=== PATIENT | female | born 1965 | race Caucasian/White ===

== ENCOUNTER 2017-09-06 16:00 | Inpatient (IN) | payer OTHER ==
[~2017-09-06] VITALS: Ht 167.6 cm; Wt 61.8 kg
--- NOTE | ~2017-09-06 | CON ---
[place], [place] REPORT OF CONSULTATION NAME: LAURY SCOTT UNIT #: [id number] ROOM: 522 DOCTOR: MELISSA GREER MD BIRTHDATE: [birth year] DOS: 09/07/2017 HISTORY OF PRESENT ILLNESS: This is a 51-year-old patient who presented with chief complaint of lower abdominal pain for 2 days. The patient was admitted to the Emergency Room. A CT scan of the abdomen was obtained. The patient was suspected to have a mass in right colon. I have been asked for assessment of the patient in this regard. PAST MEDICAL HISTORY: Associated hypothyroidism. PAST SURGICAL HISTORY: Thyroidectomy and appendectomy. ALLERGIES: No known medication. SOCIAL HISTORY: Nonsmoker and social alcohol consumer. FAMILY HISTORY: Noncontributory. REVIEW OF SYSTEMS: HEENT: Denies double vision, blurred vision. RESPIRATORY: Denies acute shortness of breath. CARDIOVASCULAR: Denies acute chest pain. DIGESTIVE SYSTEM: As identified above. No changes in bowel habit. No hematemesis, no hematochezia. PHYSICAL EXAMINATION: VITAL SIGNS: Stable. HEENT: Within normal limits. NECK: Supple, no thyromegaly, no cervical lymphadenopathy. CHEST: Symmetric anatomy, equal expansion. No wheeze. No rhonchi. HEART: Normal sinus rhythm, no gallop, no murmur. ABDOMEN: Soft. No hepato-organomegaly. Bowel sounds within normal limits. EXTREMITIES: No cyanosis, no pedal edema. NEUROLOGIC: Alert, oriented to time, place and person. IMPRESSION: Abnormal CT scan report mass seen at the level of the cecum, malignancy has been of concern and the colonoscopy was recommended; therefore, we are consulted and answer was needed today. Labs reviewed and records reviewed. Her hCG was negative. H and H were stable. Her urine cultures showed no growth. IMPRESSION AND PLAN: Ruling out mass in cecum, hypothyroidism. Labs reviewed. Medications reviewed, records reviewed. Plan for colonoscopy today. [place], [place] REPORT OF CONSULTATION NAME: LAURY SCOTT UNIT #: [id number] ROOM: 522 DOCTOR: MELISSA GREER MD BIRTHDATE: [birth year] MELISSA GREER MD CM:CONSTR:REPORT OF CONSULTATION 00 09/14/170 interface
--- NOTE | ~2017-09-06 | O ---
[place], [place] OPERATIVE NOTE NAME: LAURY SCOTT UNIT #: [id number] ROOM: 522 DOCTOR: MELISSA GREER MD BIRTHDATE: [birth year] DOS: 09/07/2017 INDICATIONS: This is a 51-year-old patient who presented with chief complaint of abdominal pain, had a CT scan of the abdomen and was suspected to have malignancy in the cecum. PROCEDURE: Today's procedure part of investigation is colonoscopy. PREMEDICATION: Versed and Diprivan. SCOPE: Olympus forward viewing colonoscope 10L video. DESCRIPTION OF PROCEDURE: After putting the patient in the left lateral position and after application of lubricant to the scope, the scope was introduced. Thereafter, under direct visualization, I advanced through the length of colon with some difficulty. Difficulty being extreme tortuosity of the colon. Meticulous care had to be given to maneuver throughout all this tortuosity. Finally base of the cecum explored, appendiceal orifice identified, ileocecal valve was photographed. The scope was gradually withdrawn. There was no colonic mass in the cecum. Air was suctioned out. The patient was extubated, tolerated procedure well. IMPRESSION: Tortuous colon, no cecal mass. PLAN AND DISCUSSION: Regular diet. ACTIVITY: Ad diandra. Thank you very much indeed. Workup for pelvic pain continues, perhaps UTI has to be ruled out. MELISSA GREER MD CM:OPRECORD:OPERATIVE NOTE [id number] MELISSA GREER MD 09/14/17 1711 interface
[2017-09-06 16:00] VITALS: BP 134/82
[~2017-09-06 16:00] MED LIST: ALLEGRA180 MG PO; MEDROL DOSEPAK4 MG PO; PROAIR HFA0.09 MG/AC IH
[2017-09-06 16:23] LABS: BILIRUBIN NEGATIVE (NEGATIVE); BLOOD NEGATIVE (NEGATIVE); CLARITY CLEAR (CLEAR); COLOR YELLOW (YELLOW); GLUCOSE NEGATIVE (NEGATIVE); KETONE NEGATIVE (NEGATIVE); LEUKO ESTERASE 1+ (NEGATIVE); NITRITE NEGATIVE (NEGATIVE); SPECIFIC GRAVITY 1.015 (1.005-1.030); UROBILINOGEN 0.2 E.U./dl (0.2-1.0)
[2017-09-06 16:24] LABS: BASO % 0.6 % (0.0-1.0); EOS # 0.1 10*3/uL (0.0-0.4); EOS % 1.3 % (1.0-4.0); HEMATOCRIT 45.8 % (37.0-47.0); HEMOGLOBIN 14.6 g/dl (12.0-16.0); LYMPH # 1.9 10*3/uL (1.3-4.4); LYMPH % 30.5 % (27.0-41.0); MEAN CELL VOLUME 94.6 fl (81.0-99.0); MEAN CORPUSCULAR HGB 30.2 pg (27.0-31.0); MEAN CORPUSCULAR HGB CONC 31.9 g/dl (33.0-37.0); MEAN PLATELET VOLUME 11.1 fl (9.6-12.3); MONO # 0.5 10*3/uL (0.1-1.0); NEUT # 3.7 10*3/uL (2.3-7.9); NEUT % 59.3 % (47.0-73.0); PLATELET COUNT AUTOMATED 210 10*3/uL (130-400); RED BLOOD COUNT 4.84 10*6/uL (4.10-5.10); RED CELL DISTRI WIDTH 11.9 % (0-14.5); WHITE BLOOD COUNT 6.2 10*3/uL (4.8-10.8)
[2017-09-06 16:32] LABS: BACTERIA TRACE; RBC 0-2 rbc/hpf (0-2)
[2017-09-06 16:43] LABS: ALBUMIN 4.2 gm/dl (3.1-4.5); ALKALINE PHOSPHATASE 87 U/L (45-117); BUN 16 mg/dl (7-24); CHLORIDE 104 mmol/L (98-107); CREATININE 0.95 mg/dL (0.55-1.02); SGOT/AST 17 IU/L (3-35); SGPT/ALT 18 U/L (12-78); SODIUM 140 mmol/L (136-145); TOTAL PROTEIN 7.8 gm/dL (6.4-8.2)
[2017-09-06 18:01] VITALS: BP 123/79
--- NOTE | 2017-09-06 19:49 | NUR ---
PATIENT RESTING IN BED WITH FAMILY AT BEDSIDE STATES NO CHANGE IN ABDOMINAL PAIN, PT A&O X3, DENIES NAUSEA OR VOMITING, CONSTANT SHARP PAIN THAT VARIES IN INTENCITY
[2017-09-06 19:56] VITALS: BP 155/92
[2017-09-06 21:00] VITALS: BP 143/88
--- NOTE | 2017-09-06 21:00 | NUR ---
Time: 2099 A 51 year old FEMALE admitted to 5E under services of FRANKY MERRITT DO. Pt. arrived via wheel chair from ER. Chief complaint: ABDOMINAL PAIN, ABDOMINAL MASS. JACKELINE HERNANDEZ
--- NOTE | 2017-09-06 21:24 | NUR ---
SPOKE TO AT THIS TIME REGARDING CONSULT. DISCUSSED RESULTS OF CT OF ABD/PELVIS INCLUDING CECAL MASS MEASURING 2.7 X 1.8 X 4.8 CM. ALSO DISCUSSED LABS AND HOME MEDICATIONS. INSTRUCTED TO CALL WITH RESULTS OF URINE CULTURE WHEN IT COMES BACK. AWARE THAT PRELIMINARY CULTURE RESULTS GENERALLY TAKE 48 HOURS TO RETURN.
--- NOTE | 2017-09-06 22:03 | NUR ---
PT MEDICATED WITH PO NORCO PER PRN ORDER FOR C/O LOWER ABDOMINAL PAIN 05/11. PATIENT STATES FEELING IS A CONSTANT DULL ACHE/UNCOMFORTABLE FEELING WITH INTERMITTENT SHARP PAINS. WILL MONITOR EFFECTIVENESS OF MEDICATIONS. IV DILAUDID OFFERED PER PRN ORDER, BUT PATIENT STATES SHE DOES NOT WANT TO TAKE SOMETHING SO STRONG AT THIS TIME. CALL LIGHT LEFT IN REACH.
[2017-09-06] MEDS ORDERED: SYNTHROID,LEV112 MCG PO (22:27)
[2017-09-06] MEDS ORDERED: ONCE DAILY1 EACH PO (22:28)
[2017-09-06] MEDS ORDERED: SEPTDS PO (22:28)
--- NOTE | 2017-09-06 22:30 | NUR ---
PATIENT MED REC UP TO DATE PER PATIENT RECALL.
--- NOTE | 2017-09-06 22:58 | NUR ---
PATIENT STATES EARLIER MEDICATION WAS EFFECTIVE. WILL CONTINUE TO MONITOR. CALL LIGHT LEFT IN REACH.
[2017-09-07] VITALS (9 sets, daily range): BP systolic 90–130; BP diastolic 60–88
--- NOTE | 2017-09-07 05:47 | NUR ---
SPOKE TO AT THIS TIME. WANTS PATIENT TO HAVE 25 MG DULCOLAX PO NOW, FOLLOWED BY 255 MG MIRALAX PREP IN 2L OF GATORADE. ALSO INSTRUCTED TO HOLD ALL BLOOD THINNERS, KEEP PT NPO AFTER MIRALAX PREP, AND CALL BY 11 AM REGARDING RESULTS OF COLO PREP. POSSIBLE COLO DEPENDING ON RESPONSE TO PREP.
[2017-09-07 06:08] LABS: BUN 15 mg/dl (7-24); CHLORIDE 103 mmol/L (98-107); CHOLESTEROL 175 mg/dL (<200); CREATININE 0.95 mg/dL (0.55-1.02); HDL CHOLESTEROL 58 mg/dl (40-60); LDL CHOLESTEROL 105 mg/dL (9-159); SODIUM 140 mmol/L (136-145); TRIGLYCERIDES 58 mg/dl (<150); VLDL CHOLESTEROL 12 mg/dL (6-40)
[2017-09-07 06:15] LABS: THYROID STIM HORMONE (HS) 0.061 uIU/ml (0.358-4.75)
[2017-09-07 06:17] LABS: BASO % 0.7 % (0.0-1.0); EOS # 0.1 10*3/uL (0.0-0.4); EOS % 2.4 % (1.0-4.0); HEMATOCRIT 41.6 % (37.0-47.0); HEMOGLOBIN 13.3 g/dl (12.0-16.0); LYMPH # 1.6 10*3/uL (1.3-4.4); LYMPH % 38.3 % (27.0-41.0); MEAN CELL VOLUME 93.7 fl (81.0-99.0); MEAN PLATELET VOLUME 11.7 fl (9.6-12.3); MONO # 0.4 10*3/uL (0.1-1.0); MONO % 9.7 % (3.0-9.0); NEUT % 48.7 % (47.0-73.0); PLATELET COUNT AUTOMATED 173 10*3/uL (130-400); RED BLOOD COUNT 4.44 10*6/uL (4.10-5.10); RED CELL DISTRI WIDTH 11.9 % (0-14.5); WHITE BLOOD COUNT 4.1 10*3/uL (4.8-10.8)
[2017-09-07 06:45] LABS: ACT PARTIAL THROMBO TIME 25.3 SECONDS (20.8-31.5)
--- NOTE | 2017-09-07 08:21 | NUR ---
Patient requested information regarding [facility]PO[facility] and living will. Packet provided.
--- NOTE | 2017-09-07 09:00 | NUR ---
[employer] Blind [employer]er And Repairer in to talk to patient. Patient states lives at home with family. There are no steps in the home. Physician: patricio lynn Pharmacy: [facility] Home health services: none Patient's level of ADLs: INDEPENDENT Patient has working utilities: all working DME: none Follow-up physician's appointment after d/c: will be made by hospitalist nurse director upon discharge Does patient want to access PORTAL?: no Discharge plan discussed with patient patient lives at home, is independent in adls and ambulation, patient will be going home when able and denies any home needs. BONG DAMON
--- NOTE | 2017-09-07 10:46 | NUR ---
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
--- NOTE | 2017-09-07 13:46 | NUR ---
MEDICATED IV DILAUDID FOR C/O ABDOMINAL PAIN. RATES PAIN 8/10. PT IMMEDIATELY STATES HER HEAD FEELS FUNNY AND LIGHTHEADINESS. BP 120/50. WILL CONTINUE TO MONITOR.
--- NOTE | 2017-09-07 13:55 | NUR ---
DR FRAIRE NOTIFIED THAT PT DOES NOT WANT DILAUDID FOR PAIN, WOULD LIKE SOMETHING ELSE.
--- NOTE | 2017-09-07 14:30 | NUR ---
RESTING QUIETLY, DILAUDID EFFECTIVE FOR PAIN BUT PT STATES SHE DID NOT LIKE THE WAY IT MADE HERE FEEL. DR FRAIRE HAS PUT ORDER IN FOR TORODAL.
--- NOTE | 2017-09-07 16:02 | NUR ---
MEDICATED IV ZOFRAN FOR C/O NAUSEA.
--- NOTE | 2017-09-07 16:04 | NUR ---
IV FLUIDS D5 1/2 WITH KCL AT 80 HOUR STARTED ORDERED.
--- NOTE | 2017-09-07 16:30 | NUR ---
TO OR VIA BED.
--- NOTE | 2017-09-07 18:05 | NUR ---
BACK FROM OR. ONLY C/O IS THAT SHE IS HUNGRY.
--- NOTE | 2017-09-07 18:19 | NUR ---
MEDICATED PO NORCO FOR C/O PAIN. RATES PAIN 5/10
[2017-09-08] VITALS: BP 100/56
[2017-09-08 06:55] LABS: BASO % 0.7 % (0.0-1.0); EOS # 0.1 10*3/uL (0.0-0.4); EOS % 2.7 % (1.0-4.0); HEMATOCRIT 41.5 % (37.0-47.0); HEMOGLOBIN 13.5 g/dl (12.0-16.0); LYMPH # 1.3 10*3/uL (1.3-4.4); LYMPH % 31.5 % (27.0-41.0); MEAN CELL VOLUME 94.3 fl (81.0-99.0); MEAN CORPUSCULAR HGB 30.7 pg (27.0-31.0); MEAN CORPUSCULAR HGB CONC 32.5 g/dl (33.0-37.0); MEAN PLATELET VOLUME 11.4 fl (9.6-12.3); MONO # 0.3 10*3/uL (0.1-1.0); NEUT # 2.3 10*3/uL (2.3-7.9); NEUT % 56.9 % (47.0-73.0); PLATELET COUNT AUTOMATED 174 10*3/uL (130-400); RED CELL DISTRI WIDTH 11.7 % (0-14.5); WHITE BLOOD COUNT 4.1 10*3/uL (4.8-10.8)
[2017-09-08 07:28] LABS: CHLORIDE 105 mmol/L (98-107); POTASSIUM 4.7 mmol/L (3.5-5.1); SODIUM 139 mmol/L (136-145)
[2017-09-08 07:37] LABS: ALBUMIN 3.6 gm/dl (3.1-4.5); ALKALINE PHOSPHATASE 69 U/L (45-117); BUN 15 mg/dl (7-24); CREATININE 0.82 mg/dL (0.55-1.02); SGOT/AST 14 IU/L (3-35); SGPT/ALT 16 U/L (12-78); TOTAL PROTEIN 6.6 gm/dL (6.4-8.2)
[2017-09-08 08:00] VITALS: BP 120/72
--- NOTE | 2017-09-08 08:30 | NUR ---
Patient resting quietly with no c/o discomfort. Respirations easy and regular. Vital signs stable. No overt distress. ANGEL BARRERA R
--- NOTE | 2017-09-08 09:00 | NUR ---
case management visits with patient, patient denies any home needs
--- NOTE | 2017-09-08 11:30 | NUR ---
DR GREER CALLED AND NOTIFIED OF URINE CULTURE RESULT. UPDATED THAT PT TOLERATED DIET WITHOUT PROBLEM AND ORDERING OF PELVIC US FOR TODAY. DR GREER WANTS CALLED WITH RESULT.
[2017-09-08 12:00] VITALS: BP 125/86
--- NOTE | 2017-09-08 13:19 | NUR ---
DR FRAIRE NOTIFIED OF PATIENTS IV BEING PULLED OUT AND PT REQUEST AT THIS TIME NOT TO HAVE ANOTHER IV PLACED. DR FRAIRE STATES THAT IS OK.
[2017-09-08 16:00] VITALS: BP 125/74
[2017-09-08] MEDS ORDERED: B12,B-12,B 12500 MC1 PO (17:06)
--- NOTE | 2017-09-08 17:06 | NUR ---
DR FRAIRE CALLED WITH PELVIC US RESULTS.
--- NOTE | 2017-09-08 17:09 | NUR ---
DR GREER CALLED WITH PELVIC US RESULTS. NO NEW ORDERS. OK TO DC FROM HIM. FOLLOW UP IN OFFICE OUT PATIENT.
--- NOTE | 2017-09-08 17:10 | NUR ---
DR FRAIRE CALLED AND NOTIFIED OF DR GREER'S CALL.
--- NOTE | 2017-09-08 17:50 | NUR ---
Discharge instructions reviewed with patient/family. Patient receptive and verbalizes understanding. Follow-up care arranged. Written instructions given to patient/family. ANGEL BARRERA
== END 2017-09-08 17:50 | disposition home or self-care (01) | DRG 392 ==
LOC: ED 16:00 → 5E 19:31 → EDHOLD 19:31 → 5E 19:37
PROVIDERS: Emergency Medicine; Internal Medicine; ADMIT Internal Medicine
PROC: 0DJD8ZZ Inspection of Lower Intestinal Tract, Via Natural or Artificial Opening Endoscopic (ICD-10-PCS; principal; 2017-09-06)
DX: R10.9 Unspecified abdominal pain (principal); C73 Malignant neoplasm of thyroid gland; D72.819 Decreased white blood cell count, unspecified; C44.509 Unspecified malignant neoplasm of skin of other part of trunk; E89.0 Postprocedural hypothyroidism; N39.0 Urinary tract infection, site not specified; R19.00 Intra-abdominal and pelvic swelling, mass and lump, unspecified site; K63.89 Other specified diseases of intestine; Z87.442 Personal history of urinary calculi; Z90.49 Acquired absence of other specified parts of digestive tract; Z98.51 Tubal ligation status; Z72.89 Other problems related to lifestyle; Z83.3 Family history of diabetes mellitus; Z82.49 Family history of ischemic heart disease and other diseases of the circulatory system; Z83.49 Family history of other endocrine, nutritional and metabolic diseases; Z79.899 Other long term (current) drug therapy

== ENCOUNTER → 2017-10-09 | Outpatient (CLI) | payer OTHER ==
[~2017-10-09] MED LIST changes: +B12,B-12,B 12500 MC1 PO; +ONCE DAILY1 EACH PO; +SEPTDS PO; +SYNTHROID,LEV112 MCG PO
== END | disposition home or self-care (01) ==
LOC: LAB 13:25
PROVIDERS: Internal Medicine Endocrinology, Diabetes & Metabolism
DX: C73 Malignant neoplasm of thyroid gland (principal); E89.0 Postprocedural hypothyroidism

== ENCOUNTER → 2018-10-13 | Outpatient (CLI) | payer OTHER | END | disposition home or self-care (01) | LOC: LAB 07:46 | PROVIDERS: Internal Medicine Endocrinology, Diabetes & Metabolism | DX: C73 Malignant neoplasm of thyroid gland (principal); E89.0 Postprocedural hypothyroidism ==

== ENCOUNTER → 2019-10-12 | Outpatient (CLI) | payer OTHER | END | disposition home or self-care (01) | LOC: LAB 11:55 | PROVIDERS: Internal Medicine Endocrinology, Diabetes & Metabolism | DX: C73 Malignant neoplasm of thyroid gland (principal); E89.0 Postprocedural hypothyroidism ==

== ENCOUNTER → 2019-10-14 | Outpatient (CLI) | payer OTHER | END | disposition home or self-care (01) | LOC: US 06:19 | DX: R10.84 Generalized abdominal pain (principal) ==

== ENCOUNTER 2020-04-22 11:29 | Emergency (ER) | payer OTHER ==
[2020-04-22 11:33] VITALS: BP 159/88
[2020-04-22] MEDS ORDERED: AUGMENTIN 875875 MG PO (12:52)
== END 2020-04-22 13:14 | disposition home or self-care (01) ==
LOC: ED 11:29
DX: S01.452A Open bite of left cheek and temporomandibular area, initial encounter (principal); J45.909 Unspecified asthma, uncomplicated; Z79.899 Other long term (current) drug therapy; Z79.2 Long term (current) use of antibiotics; W54.0XXA Bitten by dog, initial encounter; Y93.89 Activity, other specified; Y92.89 Other specified places as the place of occurrence of the external cause; Y99.8 Other external cause status

== ENCOUNTER → 2021-02-21 | Outpatient (CLI) | payer OTHER ==
[~2021-02-21] MED LIST changes: +AUGMENTIN 875875 MG PO
== END | disposition home or self-care (01) ==
LOC: LAB 10:04
PROVIDERS: ATTEND Internal Medicine Endocrinology, Diabetes & Metabolism
DX: C73 Malignant neoplasm of thyroid gland (principal); E89.0 Postprocedural hypothyroidism

== ENCOUNTER → 2022-07-18 | Outpatient (CLI) | payer OTHER | END | disposition home or self-care (01) | LOC: LAB 14:47 | PROVIDERS: ATTEND Internal Medicine Endocrinology, Diabetes & Metabolism | DX: C73 Malignant neoplasm of thyroid gland (principal); E89.0 Postprocedural hypothyroidism ==

== ENCOUNTER → 2025-02-21 | Outpatient (CLI) | payer OTHER ==
[2025-02-21 12:00] LABS: FREE T4 1.66 ng/dl (0.89-1.76)
== END | disposition home or self-care (01) ==
LOC: LAB 11:04
PROVIDERS: ATTEND Internal Medicine Endocrinology, Diabetes & Metabolism
DX: E89.0 Postprocedural hypothyroidism (principal)

== ENCOUNTER → 2025-08-09 | Outpatient (CLI) | payer OTHER | END | disposition home or self-care (01) | LOC: US 02:09 | PROVIDERS: ATTEND Nurse Practitioner Primary Care | DX: R30.0 Dysuria (principal); I10 Essential (primary) hypertension ==